=== PATIENT | male | born 1980 | race Caucasian/White ===

== ENCOUNTER 2019-04-04 20:56 | Emergency (ER) | payer MEDICAID ==
[~2019-04-04] VITALS: Ht 167.6 cm; Wt 90.6 kg
[2019-04-04 21:02] VITALS: Ht 167.6 cm; Wt 90.6 kg
[2019-04-04] MEDS ORDERED: KETOROLAC 60 MG INJ IM STA (22:06)
--- NOTE | 2019-04-04 22:53 | ERD ---
ER Documentation Chief Complaint Chief Complaint chest pain x 1 month HPI 38-year-old male presenting with right-sided chest pain for 1 month. The pain is constant, worse with movement and working. He is in construction. No associ ated shortness of breath. No alleviating factors. Has not tried any medications other than Tylenol for pain control without relief. Denies any diaphoresis, dizziness, vomiting, hemoptysis, fever or chills. No recent travel or immobilization. No surgeries. ROS All systems reviewed and are negative except as per history of present illness. Allergies Allergies: Coded Allergies: No Known Drug Allergies (Verified Allergy, Unknown, 04/04/19) PMhx/Soc Medical and Surgical Hx: pt denies Medical Hx, pt denies Surgical Hx Hx Alcohol Use: No Hx Substance Use: No Hx Tobacco Use: No Smoking Status: Former smoker FmHx Family History: No diabetes, No coronary disease Physical Exam Vitals Vital Signs Date Temp Pulse Resp B/P (MAP) Pulse Ox O2 O2 Flow FiO2 Time Delivery Rate 04/04/19 76 16 134/73 100 Room Air 22:38 (93) 04/04/19 98.2 83 18 163/88 97 21:02 (113) Physical Exam Const: No acute distress Head: Atraumatic Eyes: Normal Conjunctiva ENT: Normal External Ears, Nose and Mouth. Neck: Full range of motion. No meningismus. Chest wall: Nontender palpation, no crepitus Resp: Clear to auscultation bilaterally Cardio: Regular rate and rhythm, no murmurs. 2+ distal pulses in all 4 extrem ities Abd: Soft, non tender, non distended. Normal bowel sounds Skin: No petechiae or rashes Back: No midline or flank tenderness Ext: No cyanosis, or edema Neur: Awake and alert Psych: Normal Mood and Affect Result Diagram: 04/04/19220404/04/192204 Results 24 hrs Laboratory Tests Test 04/04/19 22:05 White Blood Count 5.7 10^3/ul Red Blood Count 4.34 10^6/ul Hemoglobin 14.0 g/dl Hematocrit 39.3 % Mean Corpuscular Volume 90.6 fl Mean Corpuscular Hemoglobin 32.3 pg Mean Corpuscular Hemoglobin Concent 35.6 g/dl Red Cell Distribution Width 12.5 % Platelet Count 132 10^3/UL Mean Platelet Volume 10.2 fl Immature Granulocytes % 0.200 % Neutrophils % 61.2 % Lymphocytes % 27.6 % Monocytes % 7.4 % Eosinophils % 2.7 % Basophils % 0.9 % Nucleated Red Blood Cells % 0.0 /100WBC Immature Granulocytes # 0.010 10^3/ul Neutrophils # 3.5 10^3/ul Lymphocytes # 1.6 10^3/ul Monocytes # 0.4 10^3/ul Eosinophils # 0.2 10^3/ul Basophils # 0.1 10^3/ul Nucleated Red Blood Cells # 0.0 10^3/ul Sodium Level 141 mmol/L Potassium Level 3.7 mmol/L Chloride Level 105 mmol/L Carbon Dioxide Level 28 mmol/L Anion Gap 8 Blood Urea Nitrogen 17 mg/dl Creatinine 1.13 mg/dl Est Glomerular Filtrat Rate mL/min > 60 mL/min Glucose Level 136 mg/dl Calcium Level 9.6 mg/dl Troponin I < 0.012 ng/ml Current Medications Medications Dose Sig/Vic Start Time Status Last (Trade) Ordered Route PRN Stop Time Admin Dose Reason Admin Ketorolac 60 mg ONCE STAT 04/04/19 DC 04/04/19 Tromethamine IM 22:06 22:36 (Toradol) 04/04/19 22:07 Procedures/MDM EMERGENT LABS AND DIAGNOSTIC STUDIES: Lab Results above were reviewed and interpreted by me. CBC: Mild thrombocytopenia, unclear etiology. No anemia or evidence of infection BMP: [no e/o clinically significant electrolyte abnormality severe acidosis, al kalosis, renal failure, diabetic ketoacidosis] Troponin within normal limits, not indicative of cardiac ischemia 12-lead EKG was interpreted by Bakari Caal MD: Normal Sinus Rhythm Normal axis Normal intervals No acute ST or T wave changes suggestive of acute ischemia or STEMI. Radiology Results as interpreted by Radiology below were reviewed by Ralf Caal MD: Chest x-ray shows no acute abnormalities Initial Nursing notes reviewed. Previous Medical Records requested via the Electronic Health Record. EMERGENCY DEPARTMENT COURSE / MEDICAL DECISION MAKING: Patient is presenting with right-sided chest pain that is been going on for 1 month. I suspect this is musculoskeletal. Vitals are unremarkable. Low suspicion for pulmonary embolism, aortic dissection, acute coronary syndrome, or pneumothorax. Chest x-ray shows no significant abnormalities. Patient was treated with Toradol for pain control. EKG and troponin were normal. I feel patient is stable for discharge with continued outpatient follow-up. Patient's blood pressure was elevated (>120/80) but appears stable without evidence of hypertensive emergency or urgency. The patient was counseled about the risks of hypertension and urged to pursue outpatient monitoring and therapy within a week with their primary care physician. Departure Diagnosis: Primary Impression: Chest pain Chest pain type: unspecified Qualified Codes: R07.9 - Chest pain, unspecified Condition: Stable DOV CAAL MD Apr 04, 2019 22:53
[2019-04-04] MEDS ORDERED: IBUP-1542 PO (23:03)
[2019-04-04 23:17] VITALS: BP 132/81; PULSE 80; RESP 16
== END 2019-04-04 23:25 | disposition home or self-care (01) ==
LOC: E/R 20:56
DX: R07.89 Other chest pain (principal); Z87.891 Personal history of nicotine dependence
CPT/HCPCS: 71045; 80048; 84484; 85025; 93005; 96372; J1885; Z7502